=== PATIENT | male | born 1955 | race Caucasian/White ===

== ENCOUNTER 2020-01-21 11:58 | Emergency (ER) | payer OTHER, MEDICARE, SELFPAY ==
[2020-01-21 12:04] VITALS: BP 140/88; PULSE 90; RESP 16; TEMP 36.5; O2SAT 96; BMI 34.4
--- NOTE | 2020-01-21 12:26 | W.ED.NEUROSD ---
HPI - Neuro Symptoms/Deficit General: Chief Complaint: Neuro Symptoms/Deficit Stated Complaint: r side numbness/ neck pain Time Seen by Provider: 01/21/20 12:06 History of Present Illness: HPI Narrative: 64-year-old white male presents with right-sided facial droop that came on over the last couple of days he has pain behind the left ear as well as some neck and back pain he is not had any rash. He is not had any other difficulties. No difficulty speech or swallowing he does note some numbness on the right side of his tongue as well as loss of sensation of taste. He denies any difficulty with speech or swallowing. He has had difficulty closing the right eye as well and some tearing. 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 Location: right face History of same: Yes Severity: moderate Quality: weak Relieving factors: none Exacerbating factors: none Context: gradual onset Associated symptoms: Deny chest pain, cough, diaphoresis, fevers/chills, headache(s), anorexia, malaise, nausea, seizures, short of breath, syncope, tingling, vertigo, vomiting or weakness Treatments Prior to Arrival: none Review of Systems Const: Denies: malaise or diaphoresis ENMT: Denies: throat pain, ear or mastoid pain, nasal discharge or nasal congestion Card: Denies: chest pain or syncope Resp: Denies: dyspnea, productive cough or non-productive cough GI: Denies: nausea or vomiting : Denies: flank pain, dysuria, urinary frequency or urinary urgency Skin/Breast: Denies: rash or pruritus Neuro: Denies: headache(s) or vertigo PFS ED PFSH: Social History Smoking and tobacco status: never smoked Alcohol intake: current Alcohol intake frequency: holidays/special occasions only Alcohol type: beer Substance/Drug Use: never Physical Exam Const: COMMON NORMALS: no acute distress GENERAL APPEARANCE: cooperative and comfortable ORIENTATION/CONSCIOUSNESS: Yes awake, Yes oriented to person, Yes oriented to place and Yes oriented to time HENMT: COMMON NORMALS: normocephalic, atraumatic and hearing grossly normal bilaterally HEAD & SCALP: normocephalic and atraumatic Eye: COMMON NORMALS: Equal, round and reactive pupils present, EOMs intact bilaterally, conjunctivae normal and no scleral icterus CONJUNCTIVA: Yes conjunctivae normal PUPIL: Yes Equal, round and reactive pupils present Neck/C-Spine: COMMON NORMALS: full ROM, no lymphadenopathy, supple and no JVD Lymph: LYMPHATIC: no lymphadenopathy noted and no lymphedema noted Resp: COMMON NORMALS: normal respiratory effort, No retractions, No use of accessory muscles and clear to auscultation bilaterally AUSCULTATION: clear to auscultation bilaterally Cardio: COMMON NORMALS: no JVD, regular rate, regular rhythm and No murmurs present (Cardio) RATE: regular rate RHYTHM: regular rhythm GI: COMMON NORMALS: Soft to palpation and No hepatosplenomegaly present AUSCULTATION: Yes normoactive bowel sounds PALPATION: Yes Soft to palpation, No Tenderness to palpation present (GI), No Guarding due to palpation present (GI) and Yes No hepatosplenomegaly present Extremity: COMMON NORMALS: normal to inspection, capillary refill normal, no clubbing, cyanosis or edema, no calf tenderness and no pedal edema Neuro: SENSORIUM/ORIENTATION: Yes oriented to person, Yes oriented to place and Yes oriented to time OTHER: Right-sided facial droop including the forehead. Consistent with a Davenport's palsy. There is drooping of the eye. Skin: COMMON NORMALS: no rashes or lesions noted GENERAL SKIN EXAM: no rashes or lesions noted Course Vital Signs: Vital signs: Vital Signs Temperature 97.7 F 01/21/20 12:04 Pulse Rate 85 01/21/20 12:41 Respiratory Rate 20 H 01/21/20 12:41 Blood Pressure 140/88 01/21/20 12:41 Pulse Oximetry 96 01/21/20 12:41 MDM - Neuro Symptoms/Deficit MDM Narrative: Medical decision making narrative: Patient has a right-sided Davenport's palsy we will go and start him on prednisone follow-up with his primary care doctor if worsens return Discharge Plan Discharge Patient Disposition: Home Clinical Impression: Davenport's palsy Condition: Stable Prescriptions: New prednisone 20 mg tablet 20 mg PO TID Qty: 15 RF: 0 Discharge Orders: Discharge Order (Routine); Ordered 01/21/20 Ordered By: Dick Atkins Discharge Diet: Usual diet Discharge Activity: Resume usual activity Activity Restrictions/Additional Instructions: Follow-up with your primary care doctor within 5 to 7 days return if worsens. Discharge Date/Time: 01/21/20 12:42 Coding Level of Care Code ED Public [employer] for [employer] Vergara
[2020-01-21 12:41] VITALS: BP 140/88; PULSE 85; RESP 20; O2SAT 96
== END 2020-01-21 12:42 | disposition home or self-care (01) ==
LOC: ER 12:33
PROVIDERS: Emergency Provider Family Medicine; PCP Nurse Practitioner Family
DX: G51.0 Bell's palsy (principal)
CPT/HCPCS: 12345; 99281